=== PATIENT | female | born 1990 | race Hispanic/Latino ===

== ENCOUNTER 2018-10-28 21:04 | Emergency (ER) | payer SELFPAY ==
--- NOTE | 2018-10-28 22:01 | EDPHYS ---
Physician Documentation [facility] Name: Linnette Conner Age: 28 yrs Sex: Female : 1990 Arrival Date: 10/28/2018 Time: 21:05 Bed 19 Private MD: Abran Martinez T ED Physician Marry Sampson HPI: 10/28 21:45 This 28 yrs old Female presents to ER via Ambulatory with complaints of Cough, pm1 Ear Pain, Chest Pain. 21:45 The patient or guardian reports cough, with no sputum. Onset: The symptoms/episode pm1 began/occurred 2 day(s) ago. Severity of symptoms: in the emergency department the symptoms are actually worse. Modifying factors: The symptoms are alleviated by nothing, the symptoms are aggravated by nothing. Associated signs and symptoms: Pertinent positives: right ear pain and chest pain with coughing. The patient has not experienced similar symptoms in the past. The patient has not recently seen a physician. 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 - Social history:: Smoking status: Patient/guardian denies using tobacco. - Ebola Screening: : No symptoms or risks identified at this time. ROS: 21:45 Constitutional: Negative for fever, chills, and weight loss, Eyes: Negative for injury, pm1 pain, redness, and discharge, Neck: Negative for injury, pain, and swelling. 21:45 Cardiovascular: Negative for chest pain, palpitations, and edema. 21:45 Abdomen/GI: Negative for abdominal pain, nausea, vomiting, diarrhea, and constipation, Back: Negative for injury and pain, : Negative for injury, bleeding, discharge, and swelling, MS/Extremity: Negative for injury and deformity, Skin: Negative for injury, rash, and discoloration, Neuro: Negative for headache, weakness, numbness, tingling, and seizure. 21:45 ENT: Positive for ear pain, Negative for sore throat. 21:45 Respiratory: Positive for cough, Negative for shortness of breath, sputum production, wheezing. Exam: 21:45 Constitutional: This is a well developed, well nourished patient who is awake, alert, pm1 and in no acute distress. Head/Face: Normocephalic, atraumatic. Eyes: Pupils equal round and reactive to light, extra-ocular motions intact. Lids and lashes normal. Conjunctiva and sclera are non-icteric and not injected. Cornea within normal limits. Periorbital areas with no swelling, redness, or edema. Neck: Trachea midline, no thyromegaly or masses palpated, and no cervical lymphadenopathy. Supple, full range of motion without nuchal rigidity, or vertebral point tenderness. No Meningismus. Chest/axilla: Normal chest wall appearance and motion. Nontender with no deformity. No lesions are appreciated. 21:45 Cardiovascular: Regular rate and rhythm with a normal S1 and S2. No gallops, murmurs, or rubs. Normal PMI, no JVD. No pulse deficits. Respiratory: Lungs have equal breath sounds bilaterally, clear to auscultation and percussion. No rales, rhonchi or wheezes noted. No increased work of breathing, no retractions or nasal flaring. Abdomen/GI: Soft, non-tender, with normal bowel sounds. No distension or tympany. No guarding or rebound. No evidence of tenderness throughout. Back: No spinal tenderness. No costovertebral tenderness. Full range of motion. Skin: Warm, dry with normal turgor. Normal color with no rashes, no lesions, and no evidence of cellulitis. MS/ Extremity: Pulses equal, no cyanosis. Neurovascular intact. Full, normal range of motion. 21:45 ENT: External ear(s): are unremarkable, Ear canal(s): are normal, TM's: bulging, on the right, erythema, that is mild, on the right, Nose: is normal, Mouth: no acute changes, Posterior pharynx: no acute changes. 21:45 Neuro: Orientation: is normal, Motor: is normal, Sensation: is normal, no obvious gross deficits, Gait: is steady, at a normal pace, without difficulty. Vital Signs: 21:14 BP 113 / 85; Pulse 111; Resp 16; Temp 98.1(O); Pulse Ox 99% on R/A; Weight 65.77 kg ak1 (R); Height 5 ft. 1 in. (154.94 cm) (R); Pain 710; 21:14 Body Mass Index 27.40 (65.77 kg, 154.94 cm) ak1 MDM: 21:23 Patient medically screened. pm1 21:40 Refusal of service: The patient/guardian displays adequate decision making capability pm1 and despite a detailed discussion of alternatives, benefits, risks, and consequences refuses: all lab tests, Patient does not want a strep test, flu test, or mono test. Would just like treatment for her right ear and sinuses . 21:44 Data reviewed: vital signs. Data interpreted: Pulse oximetry: on room air is 99 %. pm1 Interpretation: normal. Counseling: I had a detailed discussion with the patient and/or guardian regarding: the historical points, exam findings, and any diagnostic results supporting the discharge/admit diagnosis, the need for outpatient follow up, to return to the emergency department if symptoms worsen or persist or if there are any questions or concerns that arise at home. Administered Medications: No medications were administered Disposition: 10/29 04:38 Co-signature as Attending Physician, Marry Sampson MD. ma2 Disposition: 10/28/18 22:01 Discharged to Home. Impression: Otitis media, unspecified, right ear, Acute pharyngitis. - Condition is Stable. - Discharge Instructions: Otitis Media, Adult, Pharyngitis, Sinusitis, Adult. - Prescriptions for Amoxicillin 500 mg Oral Capsule - take 1 capsule by ORAL route every 8 hours for 10 days; 30 tablet. Zyrtec- D 5-120 mg Oral Tablet Sustained Release 12 hr - take 1 tablet by ORAL route every 12 hours As needed; 20 tablet. - Medication Reconciliation Form, Thank You Letter, Antibiotic Education, Prescription Opioid Use form. - Follow up: Emergency Department; When: As needed; Reason: Worsening of condition. Follow up: Private Physician; When: 2 - 3 days; Reason: Recheck today's complaints, Continuance of care, Re-evaluation by your physician. - Problem is new. - Symptoms have improved. Signatures: Justina Fernandez RN RN ak1 Anurag Delacruz, UNDERGROUND MINE MACHINERY MECHANIC UNDERGROUND MINE MACHINERY MECHANIC pm1 Marry Sampson MD MD ma2 Corrections: (The following items were deleted from the chart) 10/28 22:01 22:01 10/28/2018 22:01 Discharged to Home. Impression: Otitis media, unspecified, right pm1 ear. Condition is Stable. Forms are Medication Reconciliation Form, Thank You Letter, Antibiotic Education, Prescription Opioid Use. Follow up: Emergency Department; When: As needed; Reason: Worsening of condition. Follow up: Private Physician; When: 2 - 3 days; Reason: Recheck today's complaints, Continuance of care, Re-evaluation by your physician. Problem is new. Symptoms have improved. pm1 22:12 22:01 10/28/2018 22:01 Discharged to Home. Impression: Otitis media, unspecified, right ak1 ear; Acute pharyngitis. Condition is Stable. Forms are Medication Reconciliation Form, Thank You Letter, Antibiotic Education, Prescription Opioid Use. Follow up: Emergency Department; When: As needed; Reason: Worsening of condition. Follow up: Private Physician; When: 2 - 3 days; Reason: Recheck today's complaints, Continuance of care, Re-evaluation by your physician. Problem is new. Symptoms have improved. pm1
--- NOTE | 2018-10-28 22:01 | ER ---
Nurse's Notes [facility] Name: Linnette Conner Age: 28 yrs Sex: Female : 1990 Arrival Date: 10/28/2018 Time: 21:05 Bed 19 Private MD: Abran Martinez T Diagnosis: Otitis media, unspecified, right ear;Acute pharyngitis Presentation: 10/28 21:14 Presenting complaint: Patient states: throat pain, fever, body aches Wednesday. right ear ak1 pain started today with chest pain. Transition of care: patient was not received from another setting of care. Onset of symptoms is unknown. Risk Assessment: Do you want to hurt yourself or someone else? Patient reports no desire to harm self or others. Initial Sepsis Screen: Does the patient meet any 2 criteria? No. Patient's initial sepsis screen is negative. Does the patient have a suspected source of infection? No. Patient's initial sepsis screen is negative. Care prior to arrival: None. 21:14 Method Of Arrival: Ambulatory ak1 21:14 Acuity: JUAN 4 ak1 Triage Assessment: 21:14 General: Appears in no apparent distress. Behavior is calm, cooperative. 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 - Social history:: Smoking status: Patient/guardian denies using tobacco. - Ebola Screening: : No symptoms or risks identified at this time. Screenin:35 Abuse screen: Denies threats or abuse. Denies injuries from another. Nutritional aj1 screening: No deficits noted. Tuberculosis screening: No symptoms or risk factors identified. 22:12 Fall Risk None identified. ak1 Assessment: 21:35 General: Appears in no apparent distress. uncomfortable, Behavior is calm, cooperative, aj1 appropriate for age. Pain: Complains of pain in chest Pain does not radiate. Pain currently is 7 out of 10 on a pain scale. Neuro: Level of Consciousness is awake, alert, obeys commands, Oriented to person, place, time, situation. Cardiovascular: Patient's skin is warm and dry. Respiratory: Airway is patent Respiratory effort is even, unlabored, Respiratory pattern is regular, symmetrical. GI: No signs and/or symptoms were reported involving the gastrointestinal system. : No signs and/or symptoms were reported regarding the genitourinary system. EENT: Reports sore throat, ear pain. Derm: No signs and/or symptoms reported regarding the dermatologic system. Skin is pink, warm \T\ dry. normal. Musculoskeletal: No signs and/or symptoms reported regarding the musculoskeletal system. Circulation, motion, and sensation intact. Vital Signs: 21:14 BP 113 / 85; Pulse 111; Resp 16; Temp 98.1(O); Pulse Ox 99% on R/A; Weight 65.77 kg ak1 (R); Height 5 ft. 1 in. (154.94 cm) (R); Pain 7/10; 21:14 Body Mass Index 27.40 (65.77 kg, 154.94 cm) ak1 ED Course: 21:05 Patient arrived in ED. am2 21:05 Abran Martinez MD is Private Physician. am2 21:14 Triage completed. ak1 21:14 Arm band placed on Patient placed in an exam room, on a stretcher, Patient notified of ak1 wait time. 21:16 Anurag Delacruz NP is PHCP. pm1 21:16 Marry Sampson MD is Attending Physician. pm1 21:35 Patient has correct armband on for positive identification. Bed in low position. Call aj1 light in reach. Side rails up X 1. 21:35 No provider procedures requiring assistance completed. aj1 22:12 Patient did not have IV access during this emergency room visit. ak1 Administered Medications: No medications were administered Outcome: 22:01 Discharge ordered by . pm1 22:11 Discharged to home ambulatory, with family. ak1 22:11 Condition: good 22:11 Discharge instructions given to patient, family, Instructed on discharge instructions, follow up and referral plans. no drinking with medication, no driving heavy equipment, medication usage, safe sex practices, Demonstrated understanding of instructions, follow-up care, medications, Prescriptions given X 2. 22:12 Patient left the ED. ak1 Signatures: Hermelinda Pina RN RN aj1 Justina Fernandez RN RN ak1 Marinas, Anurag, TEST EXAMINER TEST EXAMINER pm1 Johan, Darcy am2
== END 2018-10-28 22:12 | disposition home or self-care (01) ==
LOC: ER 21:04
DX: H66.91 Otitis media, unspecified, right ear (principal); J02.9 Acute pharyngitis, unspecified
CPT/HCPCS: 99282

== ENCOUNTER 2022-07-23 14:04 | Emergency (ER) | payer SELFPAY ==
[2022-07-23 14:57] LABS: Absolute Lymphocytes (CBC) 1.5 K/uL (0.7-4.9); Hematocrit 36.3 % (36.0-45.0); Lymphocytes % 19.6 % (15.3-44.8); MCV 83.9 fL (80-100); MPV 8.6 fL (7.6-11.3); RBC Red Blood Cell Count 4.32 M/uL (3.86-4.86)
[2022-07-23 15:12] LABS: Potassium 3.6 mmol/L (3.5-5.1)
[2022-07-23 15:15] LABS: Urine Blood Trace-intact (Negative); Urine Glucose Negative (Negative); Urine Protein Negative (Negative); Urine Specific Gravity 1.025 (1.005-1.030)
--- NOTE | 2022-07-23 15:27 | RAD REPORT ---
EXAM DESCRIPTION: CT - CTHCSPWOC - 07/23/2022 3:22 pm CLINICAL HISTORY: Trauma, head and neck injury. left arm tingling, neck pain COMPARISON: Neck Angio dated 07/23/2022 TECHNIQUE: Axial 5 mm thick images of the head were obtained. Axial 2 mm thick images of the cervical spine were obtained with sagittal and coronal reconstruction images generated and reviewed. All CT scans are performed using dose optimization technique as appropriate and may include automated exposure control or mA/KV adjustment according to patient size. FINDINGS: CT HEAD WITHOUT CONTRAST: No acute hemorrhage, hydrocephalus or extra-axial collection is identified.No areas of brain edema or midline shift. The paranasal sinuses and mastoids are clear.The calvarium is intact. CT CERVICAL SPINE WITHOUT CONTRAST: No fracture or subluxation.No prevertebral soft tissues swelling is identified. IMPRESSION: No acute intracranial or cervical spine findings.
--- NOTE | 2022-07-23 15:28 | RAD REPORT ---
EXAM DESCRIPTION: CT - Head angio - 07/23/2022 3:22 pm CLINICAL HISTORY: headache, left arm tingling COMPARISON: HEAD BRAIN W O CONTRAST dated 05/15/2013 TECHNIQUE: CT angiography of the head was performed with MIPs. All CT scans are performed using dose optimization technique as appropriate and may include automated exposure control or mA/KV adjustment according to patient size. FINDINGS: Anterior circulation: No aneurysm or large vessel occlusion. No hemodynamically significant stenosis. No arteriovenous malf ormation identified. Posterior circulation: No aneurysm or large vessel occlusion. No hemodynamically significant stenosis. No arteriovenous malf ormation identified. IMPRESSION: No significant flow abnormality is detected.
--- NOTE | 2022-07-23 15:29 | RAD REPORT ---
EXAM DESCRIPTION: CT - Neck Angio - 07/23/2022 3:22 pm CLINICAL HISTORY: neck pain, left arm tingling COMPARISON: No comparisons TECHNIQUE: CT angiography of the neck vessels was performed with MIPs. All CT scans are performed using dose optimization technique as appropriate and may include automated exposure control or mA/KV adjustment according to patient size. FINDINGS: A left aortic arch is identified with normal three vessel configuration of the great vesse ls. No significant flow abnormality is seen of the common carotid bilaterally. No significant stenosis is identified involving the cervical segments of both internal carotid arteri es. Normal flow is seen within both vertebral arteries. IMPRESSION: No significant flow abnormality of the neck vessels is identified.
--- NOTE | 2022-07-23 15:40 | ER ---
Nurse's Notes [facility] Name: Linnette Conner Age: 31 yrs Sex: Female : 1990 Arrival Date: 07/23/2022 Time: 14:06 Bed 24 Private MD: Diagnosis: Paresthesia of skin;Radiculopathy, cervical region Presentation: 07/23 14:16 Chief complaint: Patient states: Wednesday i woke up with numbness in my fingers and toes; jh5 went away but Wednesday came back but into my left neck and arm and has stayed now since wednesday. Coronavirus screen: Vaccine status: Patient reports receiving the 2nd dose of the covid vaccine. Client denies travel out of the [place] in the last 14 days. Ebola Screen: Patient negative for fever greater than or equal to 101.5 degrees Fahrenheit, and additional compatible Ebola Virus Disease symptoms Patient denies exposure to infectious person. Patient denies travel to an Ebola-affected area in the 21 days before illness onset. Initial Sepsis Screen: Does the patient meet any 2 criteria? No. Patient's initial sepsis screen is negative. Does the patient have a suspected source of infection? No. Patient's initial sepsis screen is negative. Risk Assessment: Do you want to hurt yourself or someone else? Patient reports no desire to harm self or others. 14:16 Method Of Arrival: Ambulatory [facility] 14:16 Acuity: JUAN 3 [facility] 16:00 Onset of symptoms was July 19, 2022. kb3 Triage Assessment: 14:18 General: Appears in no apparent distress. slender, well groomed, well developed, well jh5 nourished, Behavior is calm, cooperative, appropriate for age. Pain: Denies pain. 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 - Social history:: Smoking status: Patient denies any tobacco usage or history of. - Family history:: not pertinent. - Hospitalizations: : No recent hospitalization is reported. Screenin:30 Abuse screen: Denies threats or abuse. Denies injuries from another. Nutritional eh3 screening: No deficits noted. Tuberculosis screening: No symptoms or risk factors identified. Fall Risk None identified. Assessment: 14:30 General: Appears in no apparent distress. uncomfortable, Behavior is calm, cooperative, eh3 appropriate for age. Pain: Denies pain. Neuro: Level of Consciousness is awake, alert, obeys commands, Oriented to person, place, time, situation, Design Technician are equal bilaterally Moves all extremities. Full function in bilateral hand(s) arm(s) leg(s) foot/feet Gait is steady, Speech is normal, Facial symmetry appears normal, Pupils are PERRLA, Tingling in neck, left arm and left hand Numbness in neck, left arm and left hand. Cardiovascular: Capillary refill < 3 seconds Patient's skin is warm and dry. Rhythm is sinus rhythm. Respiratory: Airway is patent Respiratory effort is even, unlabored, Respiratory pattern is regular, symmetrical. GI: No signs and/or symptoms were reported involving the gastrointestinal system. Abdomen is round non-distended. : No signs and/or symptoms were reported regarding the genitourinary system. EENT: No signs and/or symptoms were reported regarding the EENT system. Derm: No signs and/or symptoms reported regarding the dermatologic system. Musculoskeletal: Circulation, motion, and sensation intact. Range of motion: intact in all extremities. Vital Signs: 14:16 BP 149 / 85; Pulse 123; Resp 18; Temp 99.0; Pulse Ox 100% ; Weight 73.48 kg; Height 5 [facility] ft. 0 in. (152.40 cm); 14:30 BP 132 / 92; Pulse 119; Resp 20; Pulse Ox 100% on R/A; eh3 14:16 Body Mass Index 31.64 (73.48 kg, 152.40 cm) [facility] Vitals: 14:30 Cardiac Rhythm Assessment Sinus rhythm. 3 ED Course: 14:06 Patient arrived in ED. mr 14:18 Triage completed. [facility] 14:18 Arm band placed on right wrist. [facility] 14:26 Pankaj Stringer MD is Attending Physician. rn 14:28 Becky Daly RN is Primary Nurse. 3 14:30 Patient has correct armband on for positive identification. Bed in low position. Call 3 light in reach. Side rails up X2. Client placed on continuous cardiac and pulse oximetry monitoring. NIBP monitoring applied. Door closed. Noise minimized. 14:30 Inserted saline lock: 20 gauge in right antecubital area, using aseptic technique. eh3 Blood collected. Inserted by Benjie Clifford RN. 14:59 Basic Metabolic Panel Sent. eh3 15:23 CT Head C Spine In Process Unspecified. EDMS 15:23 CT Head Angio In Process Unspecified. EDMS 15:[address] In Process Unspecified. EDMS 15:[address] back from [address]. eh3 15:59 No provider procedures requiring assistance completed. IV discontinued, intact, kb3 bleeding controlled, No redness/swelling at site. Pressure dressing applied. Administered Medications: No medications were administered Medication: 16:01 VIS not applicable for this client. kb3 Outcome: 15:40 Discharge ordered by . rn 16:01 Discharged to home ambulatory. kb3 16:01 Condition: stable 16:01 Discharge instructions given to patient, Instructed on discharge instructions, follow up and referral plans. medication usage, Demonstrated understanding of instructions, follow-up care, medications, Prescriptions given X 1. 16:01 Patient left the ED. kb3 Signatures: Dispatcher [employer] JOSSE Melgoza Pascale GentilePankaj sarah MD MD rn Rees, Jessica RN RN jh5 Becky Daly RN RN 3 Katy Huff, RN RN kb3
--- NOTE | 2022-07-23 15:41 | EDPHYS ---
Physician Documentation [facility] Name: Linnette Conner Age: 31 yrs Sex: Female : 1990 Arrival Date: 07/23/2022 Time: 14:06 Bed 24 Private MD: ED Physician Pankaj Stringer HPI: 07/23 15:03 This 31 yrs old Female presents to ER via Ambulatory with complaints of neck rn pain, left arm tingling/numbness. 15:06 The patient presents to the emergency department with paresthesias of the left upper rn extremity. Onset: The symptoms/episode began/occurred 3 day(s) ago. Context: occurred at an unknown location, occurred while the patient was at rest. Associated signs and symptoms: Pertinent positives: paresthesias, Pertinent negatives: altered mental status, fever, neck stiffness, seizure, syncope, blurred vision, double vision, visual field changes, loss of vision, weakness. Severity of symptoms: At their worst the symptoms were mild in the emergency department the symptoms are unchanged. The patient has not experienced similar symptoms in the past. The patient has not recently seen a physician. Pt reports 3 days of tingling, no weakness. Reports fell backward and hit base of head/neck on cooler a few weeks ago. Denies chest pain/headache. Reports aching neck and tingling of left arm worse with head movement to left.. 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 - Social history:: Smoking status: Patient denies any tobacco usage or history of. - Family history:: not pertinent. - Hospitalizations: : No recent hospitalization is reported. ROS: 15:06 Constitutional: Negative for fever, chills, and weight loss, Eyes: Negative for injury, rn pain, redness, and discharge, Neck: + neck pain Cardiovascular: Negative for chest pain, palpitations, and edema, Respiratory: Negative for shortness of breath, cough, wheezing, and pleuritic chest pain, Abdomen/GI: Negative for abdominal pain, nausea, vomiting, diarrhea, and constipation, Back: Negative for injury and pain, MS/Extremity: Negative for injury and deformity, Skin: Negative for injury, rash, and discoloration, Neuro: Negative for headache, weakness, and seizure. Exam: 15:06 Constitutional: This is a well developed, well nourished patient who is awake, alert, rn and in no acute distress. Head/Face: Normocephalic, atraumatic. Eyes: Periorbital areas with no swelling, redness, or edema. Neck: Trachea midline, no thyromegaly or masses palpated, and no cervical lymphadenopathy. Supple, full range of motion without nuchal rigidity, or vertebral point tenderness. No Meningismus. + reproduction of symptoms with left head turn and downward pressure to head/neck. Cardiovascular: Regular rate and rhythm. No pulse deficits. Respiratory: No increased work of breathing, no retractions or nasal flaring. Abdomen/GI: Soft, non-tender Back: No spinal tenderness. No costovertebral tenderness. Full range of motion. Skin: Warm, dry with normal turgor. Normal color with no rashes, no lesions, and no evidence of cellulitis. MS/ Extremity: Pulses equal, no cyanosis. Neurovascular intact. Full, normal range of motion. Equal circumference. Neuro: Awake and alert, GCS 15, oriented to person, place, time, and situation. Cranial nerves II-XII grossly intact. Motor strength 5/5 in all extremities. Sensory grossly intact. Cerebellar exam normal. Vital Signs: 14:16 BP 149 / 85; Pulse 123; Resp 18; Temp 99.0; Pulse Ox 100% ; Weight 73.48 kg; Height 5 jh5 ft. 0 in. (152.40 cm); 14:30 BP 132 / 92; Pulse 119; Resp 20; Pulse Ox 100% on R/A; eh3 14:16 Body Mass Index 31.64 (73.48 kg, 152.40 cm) jh5 MDM: 14:26 Patient medically screened. rn 15:34 Data reviewed: vital signs, nurses notes, lab test result(s), radiologic studies, CT rn scan, and as a result, I will discharge patient. 15:38 Counseling: I had a detailed discussion with the patient and/or guardian regarding: the rn historical points, exam findings, and any diagnostic results supporting the discharge/admit diagnosis, lab results, radiology results, the need for outpatient follow up, to return to the emergency department if symptoms worsen or persist or if there are any questions or concerns that arise at home. Special discussion: I discussed with the patient/guardian in detail that at this point there is no indication for admission to the hospital. It is understood, however, that if the symptoms persist or worsen the patient needs to return immediately for re-evaluation. Further emergent ED testing is not indicated at this point in time. I discussed with the patient/guardian in detail the need to arrange with the PCP or specialist further outpatient testing, MRI. 07/23 14:37 Order name: CBC with Diff; Complete Time: 15:20 rn 07/23 14:37 Order name: Basic Metabolic Panel; Complete Time: 15:20 rn 07/23 14:36 Order name: CT Head C Spine; Complete Time: 15:33 rn 07/23 14:37 Order name: CT Head Angio; Complete Time: 15:33 rn 07/23 14:37 Order name: Neck Angio CT; Complete Time: 15:33 rn 07/23 15:15 Order name: Urine Dipstick-Ancillary; Complete Time: 15:20 [facility] 07/23 14:37 Order name: IV Start; Complete Time: 14:59 rn 07/23 14:37 Order name: Urine Dipstick-Ancillary (obtain specimen); Complete Time: 15:17 rn 07/23 14:37 Order name: Urine Test (obtain specimen); Complete Time: 15:17 rn Administered Medications: No medications were administered Disposition Summary: 07/23/22 15:40 Discharge Ordered Location: Home rn Problem: new rn Symptoms: have improved rn Condition: Stable rn Diagnosis - Paresthesia of skin rn - Radiculopathy, cervical region rn Followup: rn - With: Private Physician - When: As needed - Reason: Recheck today's complaints, Re-evaluation by your physician Discharge Instructions: - Discharge Summary Sheet rn - Cervical Radiculopathy rn - Paresthesia rn Forms: - Medication Reconciliation Form rn - Thank You Letter rn - Antibiotic rn home health - Prescription Opioid Use rn Prescriptions: - Medrol (Jaden) 4 mg Oral Tablets, Dose Pack - take 1 tablet by ORAL route as directed - follow package instructions; 1 rn packet; Refills: 0, Product Selection Permitted Signatures: Dispatcher [facility] Pankaj Meyer MD MD rn Rees, Jessica, RN RN 5
[2022-07-23 16:16] VITALS: TEMP 99; O2SAT 100
[2022-07-23 16:17] VITALS: BP 132/92
== END 2022-07-23 16:01 | disposition home or self-care (01) ==
LOC: ER 14:04
DX: M54.12 Radiculopathy, cervical region (principal); R20.2 Paresthesia of skin
CPT/HCPCS: 36415; 70450; 70496; 70498; 72125; 80048; 81003; 82565; 85025; 99285; Q9967